=== PATIENT | male | born 1980 | race Caucasian/White ===

== ENCOUNTER → 2020-02-29 11:56 | Outpatient (BNVA) | payer OTHER, SELFPAY | PROVIDERS: Family Provider Emergency Medicine Emergency Medical Services; Visit Provider Nurse Practitioner Family | DX: J02.9 Acute pharyngitis, unspecified (principal); J01.40 Acute pansinusitis, unspecified | CPT/HCPCS: 87071; 87880 ==

== ENCOUNTER → 2020-07-08 09:58 | Outpatient (BNVA) | payer OTHER, SELFPAY | PROVIDERS: Family Provider Emergency Medicine Emergency Medical Services; Visit Provider Nurse Practitioner Family | DX: J06.9 Acute upper respiratory infection, unspecified (principal); Z11.59 Encounter for screening for other viral diseases | CPT/HCPCS: 87635 ==

== ENCOUNTER → 2020-09-13 11:39 | Outpatient (BNVA) | payer OTHER, SELFPAY | PROVIDERS: Family Provider Emergency Medicine Emergency Medical Services; Visit Provider Nurse Practitioner | DX: J02.9 Acute pharyngitis, unspecified (principal); J06.9 Acute upper respiratory infection, unspecified; Z11.59 Encounter for screening for other viral diseases | CPT/HCPCS: 87071; 87635; 87880 ==